=== PATIENT | female | born 1975 | race Caucasian/White ===

== ENCOUNTER 2019-08-08 16:13 | Emergency (ER) | payer BC ==
[2019-08-08] MEDS ORDERED: Ketorolac 60 MG/2 ML SDV IM ONE (16:55)
[2019-08-08] MEDS ORDERED: Ketorolac 60 MG/2 ML SDV ONE (16:55)
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
--- NOTE | 2019-08-11 09:31 | CR ---
CHEST: 2 view CLINICAL HISTORY:Chest pain COMPARISON:None FINDINGS: The heart size, pulmonary vascularity and hilar structures are normal. No infiltrate effusion or pneumothorax is seen. IMPRESSION: No acute cardiopulmonary process.
== END 2019-08-08 18:16 | disposition home or self-care (01) ==
LOC: JP.ED 16:13
DX: S20.211A Contusion of right front wall of thorax, initial encounter (principal); V86.69XA Passenger of other special all-terrain or other off-road motor vehicle injured in nontraffic accident, initial encounter
CPT/HCPCS: 71046; 96372; 99284; J1885